=== PATIENT | male | born 1965 | race Caucasian/White ===

== ENCOUNTER 2016-03-28 15:12 | Emergency (ER) | payer SELFPAY ==
[~2016-03-28] VITALS: Ht 167.6 cm; Wt 65.8 kg
[~2016-03-28 15:12] MED LIST: ATIVAN1 MG PO; AUGMENTIN 875 M1 TAB PO; DAYPRO600 M1 PO; FLEXERIL10 MG PO; FLEXERIL5 MG PO; HYDROCODONE BIT1 T11 PO; KEFLEX500 MG PO; KEFTAB500 MG PO; MOTRIN800 MG PO; NKHM; PERCOCET 325 MG1 TA7 PO; VICODIN 500 MG-1 TAB PO; VICODIN ES 7501 TAB PO
== END 2016-03-28 17:53 | disposition home or self-care (01) ==
LOC: ED 15:12
DX: M25.561 Pain in right knee (principal); M26.52 Limited mandibular range of motion; M54.2 Cervicalgia; F17.200 Nicotine dependence, unspecified, uncomplicated; Y04.0XXA Assault by unarmed brawl or fight, initial encounter; Y93.9 Activity, unspecified; Y92.9 Unspecified place or not applicable; Y99.9 Unspecified external cause status

== ENCOUNTER 2018-10-31 12:17 | Emergency (ER) | payer OTHER ==
[~2018-10-31] VITALS: Ht 167.6 cm; Wt 68.0 kg
[~2018-10-31 12:17] MED LIST changes: +CEPHALEXIN500 M1 PO
[2018-10-31] MEDS ORDERED: Motrin,Rufen800 MG PO (13:58)
== END 2018-10-31 14:02 | disposition home or self-care (01) ==
LOC: ED 12:17
DX: S30.0XXA Contusion of lower back and pelvis, initial encounter (principal); M25.551 Pain in right hip; W18.39XA Other fall on same level, initial encounter; Y93.89 Activity, other specified; Y92.89 Other specified places as the place of occurrence of the external cause; Y99.8 Other external cause status

== ENCOUNTER 2020-02-18 19:56 | Emergency (ER) | payer OTHER ==
[~2020-02-18 19:56] MED LIST changes: +Motrin,Rufen800 MG PO
== END 2020-02-18 22:45 | disposition home or self-care (01) ==
LOC: ED 19:56
DX: S09.90XA Unspecified injury of head, initial encounter (principal); Z79.899 Other long term (current) drug therapy; W19.XXXA Unspecified fall, initial encounter; Y93.89 Activity, other specified; Y92.89 Other specified places as the place of occurrence of the external cause; Y99.8 Other external cause status

== ENCOUNTER 2020-02-21 20:46 | Emergency (ER) | payer OTHER ==
[~2020-02-21] VITALS: Ht 177.8 cm; Wt 74.8 kg
[2020-02-21] MEDS ORDERED: AUGMENTIN 875875 MG PO ×2 (22:05)
[2020-02-21] MEDS ORDERED: Cipro Hc 0.2%-110 ML OT (22:05)
== END 2020-02-21 22:19 | disposition home or self-care (01) ==
LOC: ED 20:46
DX: H60.91 Unspecified otitis externa, right ear (principal); Z79.899 Other long term (current) drug therapy

== ENCOUNTER 2020-02-23 21:15 | Emergency (ER) | payer OTHER ==
[~2020-02-23] VITALS: Ht 167.6 cm; Wt 73.2 kg
[~2020-02-23 21:15] MED LIST changes: +AUGMENTIN 875875 MG PO; +Cipro Hc 0.2%-110 ML OT
[2020-02-23 21:44] LABS: BASO % 0.6 % (0.0-1.0); EOS # 0.1 10*3/uL (0.0-0.4); EOS % 1.7 % (1.0-4.0); HEMATOCRIT 46.4 % (42.0-52.0); LYMPH % 29.4 % (27.0-41.0); MEAN CORPUSCULAR HGB 30.6 pg (27.0-31.0); MEAN CORPUSCULAR HGB CONC 34.7 g/dl (33.0-37.0); MONO # 0.7 10*3/uL (0.1-1.0); NEUT % 58.2 % (47.0-73.0); PLATELET COUNT AUTOMATED 172 10*3/uL (130-400); RED BLOOD COUNT 5.27 10*6/uL (4.50-5.90); RED CELL DISTRI WIDTH 12.9 % (0-14.5); WHITE BLOOD COUNT 6.9 10*3/uL (4.8-10.8)
[2020-02-23 21:59] LABS: ALBUMIN 3.5 gm/dl (3.1-4.5); ALKALINE PHOSPHATASE 96 U/L (45-117); BUN 8 mg/dl (7-24); CHLORIDE 98 mmol/L (98-107); CREATININE 0.73 mg/dL (0.70-1.30); POTASSIUM 3.6 mmol/L (3.5-5.1); SGOT/AST 43 IU/L (3-35); SGPT/ALT 62 U/L (12-78); SODIUM 132 mmol/L (136-145); TOTAL PROTEIN 7.2 gm/dL (6.4-8.2)
[2020-02-23 22:00] LABS: ACT PARTIAL THROMBO TIME 28.2 SECONDS (20.0-32.1); INTERNATIONAL NORM RATIO 0.9 (2.0-3.5)
== END 2020-02-23 22:50 | disposition home or self-care (01) ==
LOC: ED 21:15
PROVIDERS: Nurse Practitioner Family
DX: H60.91 Unspecified otitis externa, right ear (principal); R51.9 Headache, unspecified; R79.1 Abnormal coagulation profile; F17.200 Nicotine dependence, unspecified, uncomplicated

== ENCOUNTER 2020-03-10 23:31 | Emergency (ER) | payer OTHER ==
[2020-03-11 00:03] LABS: BASO # 0.1 10*3/uL (0.0-0.1); BASO % 0.5 % (0.0-1.0); EOS # 0.1 10*3/uL (0.0-0.4); EOS % 1.1 % (1.0-4.0); HEMATOCRIT 44.4 % (42.0-52.0); LYMPH % 22.1 % (27.0-41.0); MEAN CELL VOLUME 87.6 fl (80.0-94.0); MEAN CORPUSCULAR HGB 30.8 pg (27.0-31.0); MEAN CORPUSCULAR HGB CONC 35.1 g/dl (33.0-37.0); MEAN PLATELET VOLUME 11.6 fl (9.6-12.3); MONO # 0.8 10*3/uL (0.1-1.0); MONO % 8.9 % (3.0-9.0); NEUT # 6.2 10*3/uL (2.3-7.9); NEUT % 67.1 % (47.0-73.0); PLATELET COUNT AUTOMATED 209 10*3/uL (130-400); RED BLOOD COUNT 5.07 10*6/uL (4.50-5.90); WHITE BLOOD COUNT 9.2 10*3/uL (4.8-10.8)
[2020-03-11 00:20] LABS: ALBUMIN 3.9 gm/dl (3.1-4.5); ALKALINE PHOSPHATASE 92 U/L (45-117); BUN 6 mg/dl (7-24); CHLORIDE 96 mmol/L (98-107); CREATININE 0.76 mg/dL (0.70-1.30); POTASSIUM 3.7 mmol/L (3.5-5.1); SGOT/AST 43 IU/L (3-35); SGPT/ALT 54 U/L (12-78); SODIUM 127 mmol/L (136-145); TOTAL PROTEIN 7.1 gm/dL (6.4-8.2)
[2020-03-11 00:25] LABS: BILIRUBIN Negative (Negative); BLOOD Negative (Negative); CLARITY Clear (Clear); COLOR Yellow (Yellow); GLUCOSE Negative (Negative); KETONE Negative (Negative); LEUKO ESTERASE Negative (Negative); NITRITE Negative (Negative); SPECIFIC GRAVITY <= 1.005 (1.001-1.030); UROBILINOGEN 0.2 E.U./dl (0.0-1.0)
[2020-03-11 00:26] LABS: URINE AMPHETAMINES < 1000 (1000ng/ml); URINE BARBITURATES < 200 (200ng/ml); URINE BENZODIAZEPINES < 200 (200ng/ml); URINE CANNABINOIDS (THC) < 50 (50ng/ml); URINE COCAINE < 300 (300ng/ml); URINE METHADONE < 300 (300ng/ml); URINE OPIATES < 300 (300ng/ml)
[2020-03-11 00:27] LABS: URINE PHENCYCLIDINE < 25 (25ng/ml)
[2020-03-11 00:45] LABS: BACTERIA TRACE; EPITHELIAL CELLS 0-2
== END 2020-03-11 17:22 | disposition home or self-care (01) ==
LOC: ED 23:31
PROVIDERS: Internal Medicine
DX: F10.129 Alcohol abuse with intoxication, unspecified (principal); Y90.8 Blood alcohol level of 240 mg/100 ml or more

== ENCOUNTER 2020-06-02 03:48 | Inpatient (IN) | payer OTHER ==
[~2020-06-02] VITALS: Ht 167.6 cm; Wt 72.6 kg
[2020-06-02] VITALS (7 sets, daily range): BP systolic 118–156; BP diastolic 52–99
[2020-06-02 04:17] LABS: BASO % 0.5 % (0.0-1.0); EOS # 0.2 10*3/uL (0.0-0.4); EOS % 2.3 % (1.0-4.0); HEMATOCRIT 49.7 % (42.0-52.0); LYMPH # 1.9 10*3/uL (1.3-4.4); LYMPH % 25.3 % (27.0-41.0); MEAN CELL VOLUME 92.2 fl (80.0-94.0); MEAN CORPUSCULAR HGB 32.1 pg (27.0-31.0); MEAN CORPUSCULAR HGB CONC 34.8 g/dl (33.0-37.0); MEAN PLATELET VOLUME 11.2 fl (9.6-12.3); MONO # 0.7 10*3/uL (0.1-1.0); MONO % 8.7 % (3.0-9.0); NEUT # 4.7 10*3/uL (2.3-7.9); NEUT % 62.8 % (47.0-73.0); PLATELET COUNT AUTOMATED 186 10*3/uL (130-400); RED BLOOD COUNT 5.39 10*6/uL (4.50-5.90); RED CELL DISTRI WIDTH 13.8 % (0-14.5); WHITE BLOOD COUNT 7.4 10*3/uL (4.8-10.8)
[2020-06-02 04:32] LABS: ALBUMIN 3.5 gm/dl (3.1-4.5); ALKALINE PHOSPHATASE 112 U/L (45-117); BUN 6 mg/dl (7-24); CHLORIDE 98 mmol/L (98-107); CREATININE 0.85 mg/dL (0.70-1.30); POTASSIUM 3.5 mmol/L (3.5-5.1); SGOT/AST 44 IU/L (3-35); SGPT/ALT 56 U/L (12-78); SODIUM 131 mmol/L (136-145); TOTAL PROTEIN 7.4 gm/dL (6.4-8.2)
[2020-06-03] VITALS: BP 168/90
[2020-06-03 06:18] LABS: BASO % 0.1 % (0.0-1.0); HEMATOCRIT 45.7 % (42.0-52.0); LYMPH # 0.9 10*3/uL (1.3-4.4); MEAN CELL VOLUME 95.2 fl (80.0-94.0); MEAN CORPUSCULAR HGB 32.1 pg (27.0-31.0); MEAN CORPUSCULAR HGB CONC 33.7 g/dl (33.0-37.0); MEAN PLATELET VOLUME 11.7 fl (9.6-12.3); MONO % 7.9 % (3.0-9.0); NEUT # 10.5 10*3/uL (2.3-7.9); NEUT % 83.6 % (47.0-73.0); PLATELET COUNT AUTOMATED 175 10*3/uL (130-400); RED CELL DISTRI WIDTH 14.3 % (0-14.5); WHITE BLOOD COUNT 12.6 10*3/uL (4.8-10.8)
[2020-06-03 06:36] LABS: ALBUMIN 3.1 gm/dl (3.1-4.5); CHLORIDE 106 mmol/L (98-107); CHOLESTEROL 138 mg/dL (<200); CREATININE 0.97 mg/dL (0.70-1.30); POTASSIUM 3.9 mmol/L (3.5-5.1); SGOT/AST 28 IU/L (3-35); SGPT/ALT 43 U/L (12-78); SODIUM 141 mmol/L (136-145)
[2020-06-03 06:43] LABS: ALKALINE PHOSPHATASE 95 U/L (45-117); FREE T4 0.77 ng/dl (0.76-1.46); HDL CHOLESTEROL 67 mg/dl (40-60); LDL CHOLESTEROL 61 mg/dL (9-159); TOTAL PROTEIN 6.6 gm/dL (6.4-8.2); TRIGLYCERIDES 48 mg/dl (<150); VLDL CHOLESTEROL 10 mg/dL (6-40)
[2020-06-03 06:44] LABS: BUN 17 mg/dl (7-24)
[2020-06-03 08:00] VITALS: BP 130/80
[2020-06-03 12:00] VITALS: BP 130/80
[2020-06-03 14:45] LABS: BILIRUBIN Negative (Negative); BLOOD Negative (Negative); CLARITY Clear (Clear); COLOR Yellow (Yellow); GLUCOSE 3+ (Negative); KETONE Negative (Negative); LEUKO ESTERASE Negative (Negative); NITRITE Negative (Negative); SPECIFIC GRAVITY >= 1.030 (1.001-1.030); UROBILINOGEN 0.2 E.U./dl (0.0-1.0)
[2020-06-03 14:49] LABS: BACTERIA TRACE; EPITHELIAL CELLS 0-2; RBC 0-2 rbc/hpf (0-2); WBC 0-2 wbc/hpf (0-5)
[2020-06-03 16:00] VITALS: BP 151/78
[2020-06-03 20:00] VITALS: BP 168/96
[2020-06-03 23:44] VITALS: BP 156/89
[2020-06-04 08:00] VITALS: BP 180/70
[2020-06-04 12:00] VITALS: BP 178/56
[2020-06-04 20:00] VITALS: BP 160/96
[2020-06-05] VITALS: BP 151/91
[2020-06-05 08:00] VITALS: BP 146/78; BP 154/96
[2020-06-05] MEDS ORDERED: VITAMIN D350 MCG PO (11:16)
[2020-06-05] MEDS ORDERED: MELATONIN10 M2 PO (11:16)
[2020-06-05] MEDS ORDERED: NATURE'S BLEND F1 MG PO (11:16)
[2020-06-05] MEDS ORDERED: VISTARIL25 M2 PO (11:16)
[2020-06-05] MEDS ORDERED: PREDNISONE10 MG PO (11:16)
[2020-06-05] MEDS ORDERED: DOXYCYCLINE100 M3 PO (11:16)
== END 2020-06-05 12:18 | disposition home or self-care (01) | DRG 720 ==
LOC: ED 03:48 → EDHOLD 10:11 → 5E 10:11
PROVIDERS: Internal Medicine; Registered Nurse; ADMIT Internal Medicine; ATTEND Internal Medicine
DX: A41.9 Sepsis, unspecified organism (principal); J44.1 Chronic obstructive pulmonary disease with (acute) exacerbation; R07.89 Other chest pain; E87.1 Hypo-osmolality and hyponatremia; G93.41 Metabolic encephalopathy; F17.210 Nicotine dependence, cigarettes, uncomplicated; F10.920 Alcohol use, unspecified with intoxication, uncomplicated; G89.29 Other chronic pain; R51.9 Headache, unspecified; R27.0 Ataxia, unspecified; S09.90XS Unspecified injury of head, sequela; Z82.49 Family history of ischemic heart disease and other diseases of the circulatory system

== ENCOUNTER 2021-04-28 00:17 | Emergency (ER) | payer OTHER ==
[~2021-04-28] VITALS: Ht 167.6 cm; Wt 74.8 kg
[~2021-04-28 00:17] MED LIST changes: +DOXYCYCLINE100 M3 PO; +MELATONIN10 M2 PO; +NATURE'S BLEND F1 MG PO; +PREDNISONE10 MG PO; +VISTARIL25 M2 PO; +VITAMIN D350 MCG PO
[2021-04-28 00:59] LABS: BASO % 0.5 % (0.0-1.0); EOS # 0.1 10*3/uL (0.0-0.4); EOS % 1.7 % (1.0-4.0); HEMATOCRIT 48.6 % (42.0-52.0); LYMPH % 26.6 % (27.0-41.0); MEAN CELL VOLUME 91.5 fl (80.0-94.0); MEAN CORPUSCULAR HGB 32.2 pg (27.0-31.0); MEAN CORPUSCULAR HGB CONC 35.2 g/dl (33.0-37.0); MEAN PLATELET VOLUME 10.8 fl (9.6-12.3); MONO # 0.9 10*3/uL (0.1-1.0); MONO % 11.6 % (3.0-9.0); NEUT # 4.5 10*3/uL (2.3-7.9); NEUT % 59.3 % (47.0-73.0); PLATELET COUNT AUTOMATED 221 10*3/uL (130-400); RED BLOOD COUNT 5.31 10*6/uL (4.50-5.90); RED CELL DISTRI WIDTH 13.2 % (0-14.5); WHITE BLOOD COUNT 7.5 10*3/uL (4.8-10.8)
[2021-04-28 01:16] LABS: ALBUMIN 3.5 gm/dl (3.1-4.5); ALKALINE PHOSPHATASE 95 U/L (45-117); BUN 5 mg/dl (7-24); CHLORIDE 101 mmol/L (98-107); CREATININE 0.79 mg/dL (0.70-1.30); POTASSIUM 3.9 mmol/L (3.5-5.1); SGOT/AST 43 IU/L (3-35); SGPT/ALT 56 U/L (12-78); SODIUM 132 mmol/L (136-145); TOTAL PROTEIN 7.6 gm/dL (6.4-8.2)
[2021-04-28 03:08] LABS: BILIRUBIN Negative (Negative); BLOOD Negative (Negative); CLARITY Clear (Clear); COLOR Yellow (Yellow); GLUCOSE Negative (Negative); KETONE Negative (Negative); LEUKO ESTERASE Negative (Negative); NITRITE Negative (Negative); PH 5.5 (4.5-8.0); SPECIFIC GRAVITY <= 1.005 (1.001-1.030); UROBILINOGEN 0.2 E.U./dl (0.0-1.0)
[2021-04-28 03:40] LABS: WBC 0-2 wbc/hpf (0-5)
== END 2021-04-28 06:40 | disposition home or self-care (01) ==
LOC: ED 00:17
PROVIDERS: Internal Medicine
DX: F10.929 Alcohol use, unspecified with intoxication, unspecified (principal); E87.2 Acidosis; E87.1 Hypo-osmolality and hyponatremia; R79.82 Elevated C-reactive protein (CRP); Z20.2 Contact with and (suspected) exposure to infections with a predominantly sexual mode of transmission; Z98.890 Other specified postprocedural states; Y90.9 Presence of alcohol in blood, level not specified

== ENCOUNTER 2021-07-15 10:01 | Emergency (ER) | payer OTHER ==
[~2021-07-15] VITALS: Wt 72.6 kg
[2021-07-15 10:44] LABS: LIPASE 246 U/L (73-393)
[2021-07-15 11:49] LABS: BASO % 0.4 % (0.0-1.0); EOS # 0.1 10*3/uL (0.0-0.4); EOS % 1.8 % (1.0-4.0); HEMATOCRIT 49.7 % (42.0-52.0); LYMPH % 14.2 % (27.0-41.0); MEAN CELL VOLUME 90.5 fl (80.0-94.0); MEAN CORPUSCULAR HGB 31.7 pg (27.0-31.0); MONO # 0.7 10*3/uL (0.1-1.0); MONO % 9.7 % (3.0-9.0); NEUT # 5.4 10*3/uL (2.3-7.9); NEUT % 73.4 % (47.0-73.0); PLATELET COUNT AUTOMATED 201 10*3/uL (130-400); RED BLOOD COUNT 5.49 10*6/uL (4.50-5.90); RED CELL DISTRI WIDTH 12.9 % (0-14.5); WHITE BLOOD COUNT 7.3 10*3/uL (4.8-10.8)
[2021-07-15 12:01] LABS: ALKALINE PHOSPHATASE 112 U/L (45-117); BUN 7 mg/dl (7-24); CHLORIDE 102 mmol/L (98-107); CREATININE 0.77 mg/dL (0.70-1.30); POTASSIUM 4.6 mmol/L (3.5-5.1); SGOT/AST 73 IU/L (3-35); SGPT/ALT 105 U/L (12-78); SODIUM 133 mmol/L (136-145); TOTAL PROTEIN 8.3 gm/dL (6.4-8.2)
[2021-07-15 14:29] LABS: BILIRUBIN Negative (Negative); BLOOD Negative (Negative); CLARITY Clear (Clear); COLOR Yellow (Yellow); GLUCOSE Negative (Negative); KETONE Negative (Negative); LEUKO ESTERASE Negative (Negative); NITRITE Negative (Negative); UROBILINOGEN 0.2 E.U./dl (0.0-1.0)
[2021-07-15 14:33] LABS: BACTERIA TRACE; WBC 0-2 wbc/hpf (0-5)
[2021-07-15] MEDS ORDERED: PREDNISONE50 MG PO (15:49)
== END 2021-07-15 16:32 | disposition home or self-care (01) ==
LOC: ED 10:01
PROVIDERS: Emergency Medicine; Internal Medicine
DX: M54.50 Low back pain, unspecified (principal)

== ENCOUNTER 2021-11-06 19:39 | Inpatient (IN) | payer OTHER ==
[~2021-11-06] VITALS: Ht 167.6 cm
[~2021-11-06 19:39] MED LIST changes: +PREDNISONE50 MG PO
[2021-11-06 19:44] VITALS: BP 154/82
[2021-11-06 20:09] LABS: HEMATOCRIT 44.1 % (42.0-52.0); MEAN CELL VOLUME 88.9 fl (80.0-94.0); MEAN CORPUSCULAR HGB 31.5 pg (27.0-31.0); MEAN CORPUSCULAR HGB CONC 35.4 g/dl (33.0-37.0); MEAN PLATELET VOLUME 11.2 fl (9.6-12.3); PLATELET COUNT AUTOMATED 250 10*3/uL (130-400); RED BLOOD COUNT 4.96 10*6/uL (4.50-5.90); RED CELL DISTRI WIDTH 12.5 % (0-14.5); WHITE BLOOD COUNT 25.8 10*3/uL (4.8-10.8)
[2021-11-06 20:10] LABS: MANUAL DIFF REFLEX YES
[2021-11-06 20:25] LABS: ALKALINE PHOSPHATASE 128 U/L (45-117); BUN 16 mg/dl (7-24); CHLORIDE 92 mmol/L (98-107); CREATININE 1.19 mg/dL (0.70-1.30); POTASSIUM 3.8 mmol/L (3.5-5.1); SGOT/AST 37 IU/L (3-35); SGPT/ALT 58 U/L (12-78); SODIUM 130 mmol/L (136-145); TOTAL PROTEIN 7.7 gm/dL (6.4-8.2)
[2021-11-06 20:26] LABS: ETHYL ALCOHOL < 3.0 mg/dl (<3)
[2021-11-06 20:50] LABS: PLATELET SUFFICIENCY NORMAL (NORMAL); TOTAL CELLS COUNTED 100 #CELLS
[2021-11-06 21:09] VITALS: BP 150/89
[2021-11-07] VITALS (13 sets, daily range): BP systolic 123–156; BP diastolic 55–90
[2021-11-07 05:58] LABS: ALKALINE PHOSPHATASE 209 U/L (45-117); BUN 16 mg/dl (7-24); CHLORIDE 93 mmol/L (98-107); CHOLESTEROL 84 mg/dL (<200); CREATININE 0.95 mg/dL (0.70-1.30); FREE T4 1.27 ng/dl (0.76-1.46); LDL CHOLESTEROL 45 mg/dL (9-159); POTASSIUM 3.8 mmol/L (3.5-5.1); SGOT/AST 33 IU/L (3-35); SGPT/ALT 54 U/L (12-78); SODIUM 131 mmol/L (136-145); TOTAL PROTEIN 7.2 gm/dL (6.4-8.2); TRIGLYCERIDES 125 mg/dl (<150)
[2021-11-07 06:15] LABS: HEMATOCRIT 42.2 % (42.0-52.0); MEAN CELL VOLUME 90.4 fl (80.0-94.0); MEAN CORPUSCULAR HGB 32.3 pg (27.0-31.0); MEAN CORPUSCULAR HGB CONC 35.8 g/dl (33.0-37.0); MEAN PLATELET VOLUME 11.9 fl (9.6-12.3); PLATELET COUNT AUTOMATED 267 10*3/uL (130-400); RED BLOOD COUNT 4.67 10*6/uL (4.50-5.90); RED CELL DISTRI WIDTH 12.6 % (0-14.5); WHITE BLOOD COUNT 22.9 10*3/uL (4.8-10.8)
[2021-11-07 06:32] LABS: MANUAL DIFF REFLEX YES
[2021-11-07 06:53] LABS: ACT PARTIAL THROMBO TIME 29.1 SECONDS (20.0-32.1); INTERNATIONAL NORM RATIO 1.1 (2.0-3.5)
[2021-11-07 07:10] LABS: TOTAL CELLS COUNTED 100 #CELLS
[2021-11-07 07:11] LABS: PLATELET SUFFICIENCY NORMAL (NORMAL)
[2021-11-07 08:05] LABS: VITAMIN D, 25-HYDROXY 95.4 ng/mL (30-100)
[2021-11-08] VITALS: BP 146/75
[2021-11-08 06:45] LABS: HEMATOCRIT 38.3 % (42.0-52.0); MEAN CORPUSCULAR HGB 31.6 pg (27.0-31.0); MEAN CORPUSCULAR HGB CONC 34.7 g/dl (33.0-37.0); MEAN PLATELET VOLUME 11.5 fl (9.6-12.3); PLATELET COUNT AUTOMATED 277 10*3/uL (130-400); RED BLOOD COUNT 4.21 10*6/uL (4.50-5.90); RED CELL DISTRI WIDTH 12.8 % (0-14.5); WHITE BLOOD COUNT 13.8 10*3/uL (4.8-10.8)
[2021-11-08 06:49] LABS: MANUAL DIFF REFLEX YES
[2021-11-08 06:59] LABS: BUN 14 mg/dl (7-24); CHLORIDE 106 mmol/L (98-107); CREATININE 0.75 mg/dL (0.70-1.30); POTASSIUM 3.7 mmol/L (3.5-5.1); SODIUM 137 mmol/L (136-145)
[2021-11-08 07:07] LABS: BILIRUBIN 2+ (Negative); BLOOD Negative (Negative); CLARITY Clear (Clear); COLOR Dark Yellow (Yellow); GLUCOSE Negative (Negative); KETONE Trace (Negative); LEUKO ESTERASE Trace (Negative); NITRITE Negative (Negative); SPECIFIC GRAVITY >= 1.030 (1.001-1.030)
[2021-11-08 07:15] LABS: URINE AMPHETAMINES < 1000 (1000ng/ml); URINE BARBITURATES < 200 (200ng/ml); URINE BENZODIAZEPINES < 200 (200ng/ml); URINE CANNABINOIDS (THC) < 50 (50ng/ml); URINE COCAINE < 300 (300ng/ml); URINE METHADONE < 300 (300ng/ml); URINE OPIATES > 300 (300ng/ml)
[2021-11-08 07:16] LABS: URINE PHENCYCLIDINE < 25 (25ng/ml)
[2021-11-08 07:31] LABS: BACTERIA TRACE
[2021-11-08 08:00] VITALS: BP 181/87
[2021-11-08 08:19] LABS: BASOPHILS 1 % (0-1); TOTAL CELLS COUNTED 100 #CELLS
[2021-11-08 08:20] LABS: BURR CELLS FEW; OVALOCYTES FEW; PLATELET SUFFICIENCY NORMAL (NORMAL); POLYCHROMASIA SLIGHT
[2021-11-08 10:06] LABS: ACID FAST SPEC PROCESSING Tissue Grinding (.)
[2021-11-08 12:00] VITALS: BP 145/77
[2021-11-08 16:00] VITALS: BP 159/79
[2021-11-08 20:00] VITALS: BP 173/71
[2021-11-09] VITALS: BP 191/84
[2021-11-09 06:41] LABS: HEMATOCRIT 40.4 % (42.0-52.0); MEAN CELL VOLUME 90.8 fl (80.0-94.0); MEAN CORPUSCULAR HGB CONC 34.2 g/dl (33.0-37.0); MEAN PLATELET VOLUME 11.6 fl (9.6-12.3); PLATELET COUNT AUTOMATED 333 10*3/uL (130-400); RED BLOOD COUNT 4.45 10*6/uL (4.50-5.90); RED CELL DISTRI WIDTH 12.9 % (0-14.5); WHITE BLOOD COUNT 10.9 10*3/uL (4.8-10.8)
[2021-11-09 06:43] LABS: CHLORIDE 108 mmol/L (98-107); POTASSIUM 3.7 mmol/L (3.5-5.1); SODIUM 140 mmol/L (136-145)
[2021-11-09 06:47] LABS: BUN 9 mg/dl (7-24)
[2021-11-09 07:04] LABS: MANUAL DIFF REFLEX YES
[2021-11-09 08:00] VITALS: BP 169/84
[2021-11-09 08:17] LABS: BASOPHILS 1 % (0-1); PLATELET SUFFICIENCY NORMAL (NORMAL); TOTAL CELLS COUNTED 100 #CELLS
[2021-11-09 08:18] LABS: TOXIC GRANULATION MODERATE
[2021-11-09 12:00] VITALS: BP 176/90
[2021-11-09] MEDS ORDERED: THIAMINE HCL100 MG PO (15:09)
[2021-11-09] MEDS ORDERED: AUGMENTIN 500500 M1 PO ×3 (15:09→16:05)
[2021-11-09 16:00] VITALS: BP 169/85
[2021-11-09] MEDS ORDERED: LEVOFLOXACIN750 M2 PO (16:05)
[2021-11-09] MEDS ORDERED: DALVANCE500 MG IV (16:05)
== END 2021-11-09 19:27 | disposition home health service (06) | DRG 710 ==
LOC: ED 19:39 → 4E 23:45 → EDHOLD 23:45 → 4E 11-07 14:15
PROVIDERS: Emergency Medicine; Internal Medicine; Surgery; ADMIT Emergency Medicine; ATTEND Emergency Medicine
PROC: 0D9P0ZZ Drainage of Rectum, Open Approach (ICD-10-PCS; principal; 2021-11-07)
DX: A41.9 Sepsis, unspecified organism (principal); G93.41 Metabolic encephalopathy; K61.31 Horseshoe abscess; E87.1 Hypo-osmolality and hyponatremia; E43 Unspecified severe protein-calorie malnutrition; E87.8 Other disorders of electrolyte and fluid balance, not elsewhere classified; R73.9 Hyperglycemia, unspecified; E80.6 Other disorders of bilirubin metabolism; R74.01 Elevation of levels of liver transaminase levels; E83.41 Hypermagnesemia; F17.210 Nicotine dependence, cigarettes, uncomplicated; F10.139 Alcohol abuse with withdrawal, unspecified; S81.802A Unspecified open wound, left lower leg, initial encounter; X58.XXXA Exposure to other specified factors, initial encounter; D64.9 Anemia, unspecified; R27.0 Ataxia, unspecified; Z82.49 Family history of ischemic heart disease and other diseases of the circulatory system; Z87.828 Personal history of other (healed) physical injury and trauma; Z71.6 Tobacco abuse counseling; Y93.89 Activity, other specified; Y92.89 Other specified places as the place of occurrence of the external cause; Y99.8 Other external cause status; Z68.25 Body mass index [BMI] 25.0-25.9, adult

== ENCOUNTER → 2021-11-16 | Outpatient (CLI) | payer OTHER ==
[~2021-11-16] MED LIST changes: +AUGMENTIN 500500 M1 PO; +DALVANCE500 MG IV; +LEVOFLOXACIN750 M2 PO; +THIAMINE HCL100 MG PO
== END | disposition home or self-care (01) ==
LOC: WOUNDCARE 01:07
PROVIDERS: ATTEND Nurse Practitioner Family
DX: K61.1 Rectal abscess (principal); F32.9 Major depressive disorder, single episode, unspecified; Z87.891 Personal history of nicotine dependence

== ENCOUNTER → 2021-11-30 | Outpatient (CLI) | payer OTHER | END | disposition home or self-care (01) | LOC: WOUNDCARE 00:40 | PROVIDERS: ATTEND Nurse Practitioner Family | DX: K61.1 Rectal abscess (principal); F32.A Depression, unspecified; Z87.891 Personal history of nicotine dependence ==

== ENCOUNTER 2022-01-27 20:49 | Emergency (ER) | payer OTHER ==
[~2022-01-27] VITALS: Ht 177.8 cm; Wt 90.7 kg
[2022-01-27 22:09] LABS: BILIRUBIN Negative (Negative); BLOOD Negative (Negative); CLARITY Clear (Clear); COLOR Yellow (Yellow); GLUCOSE Negative (Negative); KETONE Negative (Negative); LEUKO ESTERASE Negative (Negative); NITRITE Negative (Negative); PH 5.5 (4.5-8.0); SPECIFIC GRAVITY <= 1.005 (1.001-1.030); UROBILINOGEN 0.2 E.U./dl (0.0-1.0)
[2022-01-27 22:12] LABS: BASO % 0.5 % (0.0-1.0); EOS # 0.1 10*3/uL (0.0-0.4); HEMATOCRIT 50.8 % (42.0-52.0); LYMPH # 2.3 10*3/uL (1.3-4.4); LYMPH % 26.2 % (27.0-41.0); MEAN CELL VOLUME 95.3 fl (80.0-94.0); MEAN CORPUSCULAR HGB CONC 34.6 g/dl (33.0-37.0); MEAN PLATELET VOLUME 11.2 fl (9.6-12.3); MONO # 0.6 10*3/uL (0.1-1.0); MONO % 7.4 % (3.0-9.0); NEUT # 5.6 10*3/uL (2.3-7.9); NEUT % 64.6 % (47.0-73.0); PLATELET COUNT AUTOMATED 186 10*3/uL (130-400); RED BLOOD COUNT 5.33 10*6/uL (4.50-5.90); RED CELL DISTRI WIDTH 15.4 % (0-14.5); WHITE BLOOD COUNT 8.7 10*3/uL (4.8-10.8)
[2022-01-27 22:20] LABS: URINE AMPHETAMINES < 1000 (1000ng/ml); URINE BARBITURATES < 200 (200ng/ml); URINE BENZODIAZEPINES < 200 (200ng/ml); URINE CANNABINOIDS (THC) < 50 (50ng/ml); URINE COCAINE < 300 (300ng/ml); URINE METHADONE < 300 (300ng/ml); URINE OPIATES < 300 (300ng/ml); URINE PHENCYCLIDINE < 25 (25ng/ml)
[2022-01-27 22:26] LABS: ALKALINE PHOSPHATASE 115 U/L (45-117); BUN 4 mg/dl (7-24); CHLORIDE 94 mmol/L (98-107); POTASSIUM 3.6 mmol/L (3.5-5.1); SGOT/AST 61 IU/L (3-35); SGPT/ALT 79 U/L (12-78); SODIUM 127 mmol/L (136-145); TOTAL PROTEIN 7.8 gm/dL (6.4-8.2)
[2022-01-27 22:35] LABS: ACETAMINOPHEN (TYLENOL) < 5.0 ug/ml (10-30)
== END 2022-01-28 12:00 | disposition home or self-care (01) ==
LOC: ED 20:49
PROVIDERS: Family Medicine
DX: F10.920 Alcohol use, unspecified with intoxication, uncomplicated (principal); R45.851 Suicidal ideations; F17.210 Nicotine dependence, cigarettes, uncomplicated; Z79.2 Long term (current) use of antibiotics; Z79.899 Other long term (current) drug therapy; Y90.4 Blood alcohol level of 80-99 mg/100 ml

== ENCOUNTER 2023-09-21 04:30 | Emergency (ER) | payer OTHER ==
[~2023-09-21] VITALS: Ht 167.6 cm; Wt 72.6 kg
== END 2023-09-21 09:21 | disposition left against medical advice (07) ==
LOC: ED 04:30
DX: F10.129 Alcohol abuse with intoxication, unspecified (principal); L98.9 Disorder of the skin and subcutaneous tissue, unspecified; R51.9 Headache, unspecified; F32.A Depression, unspecified; F17.210 Nicotine dependence, cigarettes, uncomplicated; Z53.29 Procedure and treatment not carried out because of patient's decision for other reasons; Y90.0 Blood alcohol level of less than 20 mg/100 ml

== ENCOUNTER 2023-10-29 17:35 | Emergency (ER) | payer OTHER ==
[~2023-10-29] VITALS: Ht 165.1 cm; Wt 77.1 kg
[2023-10-29] MEDS ORDERED: Lactated Ringer's Solution 1,000 ML IV ONE ×2 (18:25→20:05)
[2023-10-29 18:36] LABS: HEMATOCRIT 49.8 % (42.0-52.0); MEAN CELL VOLUME 93.4 fl (80.0-94.0); MEAN CORPUSCULAR HGB 32.6 pg (27.0-31.0); MEAN CORPUSCULAR HGB CONC 34.9 g/dl (33.0-37.0); MEAN PLATELET VOLUME 10.6 fl (9.6-12.3); PLATELET COUNT AUTOMATED 261 10*3/uL (130-400); RED BLOOD COUNT 5.33 10*6/uL (4.50-5.90); RED CELL DISTRI WIDTH 13.2 % (0-14.5)
[2023-10-29 18:39] LABS: MANUAL DIFF REFLEX YES
[2023-10-29] MEDS ORDERED: Lactated Ringer's Solution 500 ML IV SCH (18:45)
[2023-10-29 18:54] LABS: CHLORIDE 96 mmol/L (98-107); POTASSIUM 4.2 mmol/L (3.4-5.1)
[2023-10-29 18:55] LABS: BUN < 5 mg/dl (9-23)
[2023-10-29 19:00] LABS: AUER RODS FEW; BASOPHILS 1 % (0-1); PLATELET SUFFICIENCY NORMAL (NORMAL); TOTAL CELLS COUNTED 100 #CELLS
== END 2023-10-29 20:10 | disposition short-term general hospital (02) ==
LOC: ED 17:35
PROVIDERS: Physician Assistant Medical
DX: T22.211A Burn of second degree of right forearm, initial encounter (principal); T24.202A Burn of second degree of unspecified site of left lower limb, except ankle and foot, initial encounter; T20.27XA Burn of second degree of neck, initial encounter; T24.201A Burn of second degree of unspecified site of right lower limb, except ankle and foot, initial encounter; T21.25XA Burn of second degree of buttock, initial encounter; F32.A Depression, unspecified; T31.11 Burns involving 10-19% of body surface with 10-19% third degree burns; F17.210 Nicotine dependence, cigarettes, uncomplicated; F10.10 Alcohol abuse, uncomplicated; Z98.890 Other specified postprocedural states; X08.8XXA Exposure to other specified smoke, fire and flames, initial encounter; Y93.89 Activity, other specified; Y92.009 Unspecified place in unspecified non-institutional (private) residence as the place of occurrence of the external cause; Y99.8 Other external cause status

== ENCOUNTER → 2023-12-07 | Outpatient (CLI) | payer OTHER | END | disposition home or self-care (01) | LOC: WOUNDCARE 12-06 15:55 | PROVIDERS: ATTEND Nurse Practitioner Family | DX: T24.231A Burn of second degree of right lower leg, initial encounter (principal); T24.232A Burn of second degree of left lower leg, initial encounter; T31.0 Burns involving less than 10% of body surface; I10 Essential (primary) hypertension; E11.9 Type 2 diabetes mellitus without complications; J45.909 Unspecified asthma, uncomplicated; F32.A Depression, unspecified; F10.10 Alcohol abuse, uncomplicated; F17.210 Nicotine dependence, cigarettes, uncomplicated; Z79.899 Other long term (current) drug therapy; X08.8XXA Exposure to other specified smoke, fire and flames, initial encounter; Y93.89 Activity, other specified; Y92.89 Other specified places as the place of occurrence of the external cause; Y99.8 Other external cause status ==

== ENCOUNTER → 2024-02-02 | Outpatient (CLI) | payer OTHER | END | disposition home or self-care (01) | LOC: WOUNDCARE 02:38 | PROVIDERS: ATTEND Nurse Practitioner Family | DX: T24.231A Burn of second degree of right lower leg, initial encounter (principal); T31.0 Burns involving less than 10% of body surface; R21 Rash and other nonspecific skin eruption; I10 Essential (primary) hypertension; E11.9 Type 2 diabetes mellitus without complications; R22.41 Localized swelling, mass and lump, right lower limb; D23.39 Other benign neoplasm of skin of other parts of face; L98.9 Disorder of the skin and subcutaneous tissue, unspecified; D48.5 Neoplasm of uncertain behavior of skin; J45.909 Unspecified asthma, uncomplicated; F32.A Depression, unspecified; F10.10 Alcohol abuse, uncomplicated; F17.210 Nicotine dependence, cigarettes, uncomplicated; Z79.899 Other long term (current) drug therapy; X08.8XXA Exposure to other specified smoke, fire and flames, initial encounter; Y93.89 Activity, other specified; Y92.89 Other specified places as the place of occurrence of the external cause; Y99.8 Other external cause status ==

== ENCOUNTER 2024-05-11 10:46 | Emergency (ER) | payer OTHER ==
[~2024-05-11] VITALS: Ht 175.2 cm; Wt 74.8 kg
[2024-05-11 11:52] LABS: HEMATOCRIT 57.8 % (42.0-52.0); MEAN CELL VOLUME 92.8 fl (80.0-94.0); MEAN CORPUSCULAR HGB 31.9 pg (27.0-31.0); MEAN CORPUSCULAR HGB CONC 34.4 g/dl (33.0-37.0); MEAN PLATELET VOLUME 11.1 fl (9.6-12.3); PLATELET COUNT AUTOMATED 218 10*3/uL (130-400); RED BLOOD COUNT 6.23 10*6/uL (4.50-5.90); RED CELL DISTRI WIDTH 15.8 % (0-14.5); WHITE BLOOD COUNT 33.7 10*3/uL (4.8-10.8)
[2024-05-11 11:56] LABS: MANUAL DIFF REFLEX YES
[2024-05-11 12:10] LABS: TOTAL CELLS COUNTED 100 #CELLS
[2024-05-11 12:11] LABS: BURR CELLS MODERATE; PLATELET SUFFICIENCY NORMAL (NORMAL); POLYCHROMASIA SLIGHT; TOXIC GRANULATION SLIGHT; VACUOLATION OF NEUTROPHILS SLIGHT
[2024-05-11 12:30] LABS: BUN 11 mg/dl (9-23); CHLORIDE 100 mmol/L (98-107); ETHYL ALCOHOL 109.7 mg/dl (<3); POTASSIUM 3.5 mmol/L (3.4-5.1)
[2024-05-11 12:32] LABS: CPK 2146 U/L (34-171)
[2024-05-11] MEDS ORDERED: SODIUM CHLORIDE 0.9% 1,000 ML IV SCH (12:40)
[2024-05-11] MEDS ORDERED: LEVETIRACETAM IN NACL (ISO-OS) 100 ML IV ONE (12:55)
[2024-05-11] MEDS ORDERED: PROPOFOL 50 ML IV SCH (13:25)
[2024-05-11] MEDS ORDERED: ROCURONIUM BROMIDE 50 MG/5 ML SYRINGE IV ONE (20:50)
[2024-05-11] MEDS ORDERED: PROPOFOL 200 MG/20 ML VIAL IV ONE (20:50)
[2024-05-11] MEDS ORDERED: ETOMIDATE 20 MG/10 ML VIAL IV ONE (20:50)
== END 2024-05-11 14:51 | disposition short-term general hospital (02) ==
LOC: ED 10:46
PROVIDERS: Physician Assistant Medical
DX: S06.5XAA Traumatic subdural hemorrhage with loss of consciousness status unknown, initial encounter (principal); X58.XXXA Exposure to other specified factors, initial encounter; Y93.89 Activity, other specified; Y92.410 Unspecified street and highway as the place of occurrence of the external cause; Y99.8 Other external cause status; S02.2XXA Fracture of nasal bones, initial encounter for closed fracture; S32.029A Unspecified fracture of second lumbar vertebra, initial encounter for closed fracture; S32.039A Unspecified fracture of third lumbar vertebra, initial encounter for closed fracture; S32.049A Unspecified fracture of fourth lumbar vertebra, initial encounter for closed fracture; S32.019A Unspecified fracture of first lumbar vertebra, initial encounter for closed fracture; S32.059A Unspecified fracture of fifth lumbar vertebra, initial encounter for closed fracture

== ENCOUNTER 2024-08-02 21:09 | Emergency (ER) | payer OTHER ==
[~2024-08-02] VITALS: Ht 167.6 cm
[~2024-08-02 21:09] MED LIST changes: +BENZTROPINE ME0.5 MG PO; +DIVALPROEX SOD125 M1 PO; +EXELON1 EACH T; +HOMEMED PO; +Haldol Concen2 MG/ML PO; +LITHIUM CARBON450 M1 PO; +LOPRESSOR25 MG PO; +MELATONIN3 MG PO; +MEMANTINE HCL10 MG PO; +MEMANTINE HCL5 MG PO; +NATURE'S BLEND100 M2 PO; +NORVASC10 MG PO; +OLANZAPINE5 MG PO; +PACERONE200 MG PO; +RIVASTIGMINE1 EAC2 T; +ZIPRASIDONE HCL40 MG PO
[2024-08-04] MEDS ORDERED: SYNTHROID25 MCG PO (00:35)
== END 2024-08-02 21:28 | disposition home or self-care (01) ==
LOC: ED 21:09
DX: F99 Mental disorder, not otherwise specified (principal); Z91.83 Wandering in diseases classified elsewhere; Z79.899 Other long term (current) drug therapy; F17.200 Nicotine dependence, unspecified, uncomplicated; Z98.890 Other specified postprocedural states